=== PATIENT | female | born 1935 | race Two or more races ===

== ENCOUNTER 2018-10-25 23:17 | Emergency (ER) | payer OTHER ==
[~2018-10-25] VITALS: Ht 152.4 cm; Wt 72.6 kg
[2018-10-25 23:59] LABS: Basophils # (auto) 0.1 uL; Basophils % (auto) 0.6 % (0.0-2.0); Eosinophils # (auto) 0.2 uL; Hematocrit 39.1 % (36.0-46.0); Lymphocytes # (auto) 4.4 uL; Lymphocytes % (auto) 37.3 % (10.0-50.0); Mean Corpuscular Hemoglobin 29.4 pg (28.0-32.0); Mean Corpuscular Hgb Conc. 33.2 g/dL (32.0-36.0); Mean Corpuscular Volume 88.5 fL (80.0-100.0); Monocytes # (auto) 1.1 uL; Neutrophils # (auto) 6.1 uL; Neutrophils % (auto) 51.1 % (37.0-80.0); Nucleated Red Blood Cells % 0.1 %; Platelet Count (auto) 328 10^3/uL (140-450); Red Blood Cells 4.41 10^6/uL (4.0-5.20); Red Cell Distribution Width 16.4 % (11.8-14.3); White Blood Cell 11.9 10^3/uL (4.4-10.8)
[2018-10-26 00:13] LABS: INR 0.91 (0.9-1.15); Partial Thromboplastin Time 24.3 sec (23.78-33.04); Prothrombin Time 9.8 sec (9.27-12.13)
[2018-10-26 00:30] LABS: Albumin 3.9 g/dL (3.4-5.0); BUN/Creatinine Ratio 26.6; Calcium 8.7 mg/dL (8.5-10.1); Potassium 3.6 mmol/L (3.5-5.1)
[2018-10-26 00:33] LABS: Bilirubin, Total 0.2 mg/dL (0.2-1.0); Total Protein 8.1 g/dL (6.4-8.2)
[2018-10-26 01:42] LABS: Urine Bacteria FEW /hpf (None Seen); Urine Blood TRACE /uL (Negative); Urine WBC 2 /hpf (0 - 5)
[2018-10-26 03:08] VITALS: BP 137/82
== END 2018-10-26 03:08 | disposition home or self-care (01) ==
LOC: ER 23:17
DX: K52.9 Noninfective gastroenteritis and colitis, unspecified (principal); E11.9 Type 2 diabetes mellitus without complications; I10 Essential (primary) hypertension
CPT/HCPCS: 36415; 71045; 74176; 80053; 81001; 85025; 85610; 85730